=== PATIENT | male | born 1980 | race Caucasian/White ===

== ENCOUNTER 2017-08-30 13:18 | Emergency (ER) | payer OTHER, SELFPAY ==
[2017-08-30 13:48] VITALS: BP 137/77
[2017-08-30] MEDS ORDERED: Sodium Chloride 0.9% 1,000 ML IV ONE ×3 (13:49→15:16)
[2017-08-30] MEDS ORDERED: Sodium Chloride 0.9% 10 ML Syringe FLUSH PRN (13:49)
--- NOTE | 2017-08-30 14:42 | EDM.PDOC ---
ED HPI GENERAL MEDICAL PROBLEM - General Chief Complaint: Diabetic Complaint Stated Complaint: SENT BY DR. GUAJARDO Time Seen by Provider: 08/30/17 13:48 Source of Information: Reports: Patient History Limitations: Reports: No Limitations - History of Present Illness INITIAL COMMENTS - FREE TEXT/NARRATIVE: The patient is a 36-year-old male with a history of [id number] diabetes who was sent from clinic for hyperglycemia. The patient is on oral anti -hyperglycemics only. He states that he hasn't been taking them for the past 3 weeks. He has no particular reason for not taking his medications. States she has adequate supply. States he has not been ill. States that he just forgets to take them. He is not trying to harm himself. He states he's been very thirsty and has been urinating a lot. Feels tired and weak. No additional complaint. No fever. No vomiting. No abdominal pain. No cough or difficulty breathing. Blood sugar was noted to be a high clinic so he was sent here for further care. - Related Data Allergies Allergy/AdvReac Type Severity Reaction Status Date / Time cefaclor [From [facility]] Allergy Cannot Verified 08/30/17 13:43 Remember Sulfa (Sulfonamide Allergy Cannot Verified 08/30/17 13:43 Antibiotics) Remember Home Meds: Home Meds Furosemide [Lasix] 80 mg PO DAILY 07/09/16 [History] Albuterol Sulfate [Proair Hfa] 2 puff INH Q6H PRN 08/30/17 [History] Past Medical History HEENT History: Reports: Impaired Vision Other HEENT History: wears glasses Cardiovascular History: Reports: High Cholesterol, Hypertension, PVD Other Cardiovascular History: 3 minor NJ's about 3-4 years ago Respiratory History: Reports: Asthma, COPD Genitourinary History: Reports: UTI, Recurrent Musculoskeletal History: Reports: Back Pain, Chronic, Other (See Below) Other Musculoskeletal History: sciatica Endocrine/Metabolic History: Reports: Diabetes, Type II - Past Surgical History GI Surgical History: Reports: Appendectomy Social & Family History - Tobacco Use Smoking Status *Q: Current Every Day Smoker Years of Tobacco use: 20 Packs/Tins Daily: 1 Used Tobacco, but Quit: No Month Tobacco Last Used: CURRENTLY SMOKES Second Hand Smoke Exposure: No - Caffeine Use Caffeine Use: Reports: Coffee, Soda - Alcohol Use Days Per Week of Alcohol Use: 0 - Recreational Drug Use Recreational Drug Use: No - Living Situation & Occupation Living situation: Reports: Occupation: Employed ED ROS GENERAL - Review of Systems Review Of Systems: See Below Constitutional: Reports: Malaise, Weakness, Fatigue. Denies: Fever HEENT: Reports: No Symptoms Respiratory: Denies: Shortness of Breath Cardiovascular: Denies: Chest Pain Endocrine: Reports: Fatigue, High Glucose GI/Abdominal: Denies: Abdominal Pain, Vomiting Musculoskeletal: Reports: No Symptoms Skin: Reports: No Symptoms Neurological: Reports: No Symptoms Psychiatric: Reports: No Symptoms Hematologic/Lymphatic: Reports: No Symptoms ED EXAM GENERAL NO PERIP PULSE - Physical Exam Exam: See Below Exam Limited By: No Limitations General Appearance: Alert, WD/WN, No Apparent Distress Eye Exam: Bilateral Eye: Normal Inspection Ears: Normal External Exam Nose: Normal Inspection Throat/Mouth: Normal Inspection, Normal Oropharynx, Normal Voice Head: Atraumatic, Normocephalic Neck: Normal Inspection, Supple, Non-Tender, Full Range of Motion Respiratory/Chest: No Respiratory Distress, Lungs Clear, Normal Breath Sounds, Chest Non-Tender Cardiovascular: Normal Peripheral Pulses, Regular Rate, Rhythm, No Murmur GI/Abdominal: Soft, Non-Tender. No: Rebound Back Exam: Normal Inspection Extremities: Normal Inspection Neurological: Alert, Oriented, Normal Cognition, No Motor/Sensory Deficits Psychiatric: Normal Affect, Normal Mood Skin Exam: Warm, Dry Course - Vital Signs Last Recorded V/S: Last Vital Signs Temp 36.0 C 08/30/17 13:44 Pulse 96 08/30/17 13:44 Resp BP 137/77 08/30/17 13:44 Pulse Ox 94 L 08/30/17 13:44 - Orders/Labs/Meds Orders: Active Orders 24 hr Category Date Time Status EKG 12 Lead [EKG Documentation Completion] [RC] STAT Care 08/30/17 13:48 Active Peripheral IV Care [RC] . DIRECTED Care 08/30/17 13:49 Active Peripheral IV Insertion Adult [OM.PC] Routine Oth 08/30/17 13:48 Ordered Labs: Laboratory Tests 08/30/17 08/30/17 08/30/17 Range/Units 13:49 14:00 14:05 WBC 10.16 H (4.23-9.07) K/mm3 RBC 5.30 (4.63-6.08) M/mm3 Hgb 15.8 (13.7-17.5) gm/L Hct 48.4 (40.1-51.0) % MCV 91.3 (79.0-92.2) fl MCH 29.8 (25.7-32.2) pg MCHC 32.6 (32.2-35.5) g/dl RDW Std Deviation 47.6 H (35.1-43.9) fL Plt Count 226 (163-337) K/mm3 MPV 10.3 (9.4-12.3) fl Neut % (Auto) 55.9 (34.0-67.9) % Lymph % (Auto) 31.0 (21.8-53.1) % Angelina % (Auto) 7.7 (5.3-12.2) % Eos % (Auto) 4.6 (0.8-7.0) Baso % (Auto) 0.3 (0.1-1.2) % Neut # (Auto) 5.68 H (1.78-5.38) K/mm3 Lymph # (Auto) 3.15 (1.32-3.57) K/mm3 Angelina # (Auto) 0.78 (0.30-0.82) K/mm3 Eos # (Auto) 0.47 (0.04-0.54) K/mm3 Baso # (Auto) 0.03 (0.01-0.08) K/mm3 VBG pH 7.32 (7.30-7.40) VBG pCO2 50.5 (41-51) mmHg VBG pO2 55.0 (40-80) mmHG VBG HCO3 25.3 (22-26) meq/L VBG O2 Saturation 84.1 VBG Base Excess -1.1 (-4.0-2.0) O2 Delivery Device Room air Sodium (136-145) mEq/L Potassium (3.5-5.1) mEq/L Chloride (98-107) mEq/L Carbon Dioxide (21-32) mEq/L Anion Gap (5-15) BUN (7-18) mg/dL Creatinine (0.7-1.3) mg/dL Est Cr Clr Drug Dosing mL/min Estimated GFR (MDRD) (>60) mL/min BUN/Creatinine Ratio (14-18) Glucose (74-106) mg/dL POC Glucose (70-105) mg/dL Calcium (8.5-10.1) mg/dL Phosphorus (2.6-4.7) mg/dL Magnesium (1.8-2.4) mg/dl Total Bilirubin (0.2-1.0) mg/dL AST (15-37) U/L ALT (16-63) U/L Alkaline Phosphatase (46-116) U/L Total Protein (6.4-8.2) g/dl Albumin (3.4-5.0) g/dl Globulin gm/dL Albumin/Globulin Ratio (1-2) Urine Color Yellow (Yellow) Urine Appearance Clear (Clear) Urine pH 7.0 (5.0-8.0) Ur Specific [place] 1.015 (1.005-1.030) Urine Protein Negative (Negative) Urine Glucose (UA) 2+ H (Negative) Urine Ketones 1+ H (Negative) Urine Occult Blood Negative (Negative) Urine Nitrite Negative (Negative) Urine Bilirubin Negative (Negative) Urine Urobilinogen 0.2 (0.2-1.0) Ur Leukocyte Esterase Negative (Negative) Urine RBC 0-5 (0-5) /hpf Urine WBC 0-5 (0-5) /hpf Ur Epithelial Cells 0-5 (0-5) /hpf Urine Bacteria Occasional (FEW) /hpf Urine Mucus Not seen (FEW) /hpf 08/30/17 08/30/17 Range/Units 14:05 16:48 WBC (4.23-9.07) K/mm3 RBC (4.63-6.08) M/mm3 Hgb (13.7-17.5) gm/L Hct (40.1-51.0) % MCV (79.0-92.2) fl MCH (25.7-32.2) pg MCHC (32.2-35.5) g/dl RDW Std Deviation (35.1-43.9) fL Plt Count (163-337) K/mm3 MPV (9.4-12.3) fl Neut % (Auto) (34.0-67.9) % Lymph % (Auto) (21.8-53.1) % Angelina % (Auto) (5.3-12.2) % Eos % (Auto) (0.8-7.0) Baso % (Auto) (0.1-1.2) % Neut # (Auto) (1.78-5.38) K/mm3 Lymph # (Auto) (1.32-3.57) K/mm3 Angelina # (Auto) (0.30-0.82) K/mm3 Eos # (Auto) (0.04-0.54) K/mm3 Baso # (Auto) (0.01-0.08) K/mm3 VBG pH (7.30-7.40) VBG pCO2 (41-51) mmHg VBG pO2 (40-80) mmHG VBG HCO3 (22-26) meq/L VBG O2 Saturation VBG Base Excess (-4.0-2.0) O2 Delivery Device Sodium 137 (136-145) mEq/L Potassium 4.2 (3.5-5.1) mEq/L Chloride 102 (98-107) mEq/L Carbon Dioxide 25 (21-32) mEq/L Anion Gap 14.2 (5-15) BUN 13 (7-18) mg/dL Creatinine 1.1 (0.7-1.3) mg/dL Est Cr Clr Drug Dosing 108.83 mL/min Estimated GFR (MDRD) > 60 (>60) mL/min BUN/Creatinine Ratio 11.8 L (14-18) Glucose 525 H* (74-106) mg/dL POC Glucose 379 H (70-105) mg/dL Calcium 8.5 (8.5-10.1) mg/dL Phosphorus 3.5 (2.6-4.7) mg/dL Magnesium 2.0 (1.8-2.4) mg/dl Total Bilirubin 0.4 (0.2-1.0) mg/dL AST 21 (15-37) U/L ALT 44 (16-63) U/L Alkaline Phosphatase 159 H (46-116) U/L Total Protein 6.9 (6.4-8.2) g/dl Albumin 3.2 L (3.4-5.0) g/dl Globulin 3.7 gm/dL Albumin/Globulin Ratio 0.9 L (1-2) Urine Color (Yellow) Urine Appearance (Clear) Urine pH (5.0-8.0) Ur Specific [place] (1.005-1.030) Urine Protein (Negative) Urine Glucose (UA) (Negative) Urine Ketones (Negative) Urine Occult Blood (Negative) Urine Nitrite (Negative) Urine Bilirubin (Negative) Urine Urobilinogen (0.2-1.0) Ur Leukocyte Esterase (Negative) Urine RBC (0-5) /hpf Urine WBC (0-5) /hpf Ur Epithelial Cells (0-5) /hpf Urine Bacteria (FEW) /hpf Urine Mucus (FEW) /hpf Meds: Medications Discontinued Medications Generic Name Dose Route Start Last Admin Trade Name Freq PRN Reason Stop Dose Admin Sodium Chloride 1,000 mls @ 1,000 mls/hr 08/30/17 13:49 08/30/17 13:57 Normal Saline IV 08/30/17 14:48 1,000 mls/hr ONETIME ONE Administration Sodium Chloride 1,000 mls @ 1,000 mls/hr 08/30/17 14:38 08/30/17 15:26 Normal Saline IV 08/30/17 15:37 1,000 mls/hr ONETIME ONE Administration Sodium Chloride 1,000 mls @ 1,000 mls/hr 08/30/17 15:16 08/30/17 16:29 Normal Saline IV 08/30/17 16:15 1,000 mls/hr ONETIME ONE Administration Insulin Human Regular 10 unit 08/30/17 16:00 Humulin R SUBCUT BIDAC KAYCE Protocol Insulin Human Regular 10 unit 08/30/17 15:20 08/30/17 15:28 Humulin R SUBCUT 08/30/17 15:21 10 unit ONETIME ONE Administration Protocol Sodium Chloride 10 ml 08/30/17 13:49 08/30/17 13:57 Saline Flush FLUSH 10 ml ASDIRECTED PRN Administration Keep Vein Open - Re-Assessments/Exams Free Text/Narrative Re-Assessment/Exam: Labs show hyperglycemia with blood sugar in the 500s, normal anion gap, normal bicarbonate. Patient was given 10 units of insulin and 3 L of fluid. His blood sugars improved. His vital signs are normal and he appears well. Encouraged him to resume his home medications. Departure - Departure Time of Disposition: 17:00 Disposition: Home, Self-Care 01 Clinical Impression: Hyperglycemia - Discharge Information Instructions: Hyperglycemia, [id number] Referrals: Vargas Guajardo [Primary Care Provider] - Forms: ED Department Discharge Additional Instructions: 1. Take your usual medications as prescribed 2. Follow up with Dr. Dominguez as soon as possible for further care 3. Drink plenty of fluids 4. Return to the ED if you have chest pain, difficulty breathing, abdominal pain, vomiting, or any other concerning symptoms - My Orders Last 24 Hours: My Active Orders 08/30/17 13:48 EKG 12 Lead [EKG Documentation Completion] [RC] STAT Peripheral IV Insertion Adult [OM.PC] Routine 08/30/17 13:49 Peripheral IV Care [RC] . DIRECTED - Assessment/Plan Last 24 Hours: My Active Orders 08/30/17 13:48 EKG 12 Lead [EKG Documentation Completion] [RC] STAT Peripheral IV Insertion Adult [OM.PC] Routine 08/30/17 13:49 Peripheral IV Care [RC] . DIRECTED
[2017-08-30] MEDS ORDERED: Insulin Regular, Human 100 Units/ML 3 ML Vial SUBCUT ONE (15:20)
[2017-08-30] MEDS ORDERED: Insulin Regular, Human 100 Units/ML 3 ML Vial SUBCUT SCH (16:00)
== END 2017-08-30 18:00 | disposition home or self-care (01) ==
LOC: JD.ED 13:18
DX: E11.65 Type 2 diabetes mellitus with hyperglycemia (principal); I10 Essential (primary) hypertension; E78.00 Pure hypercholesterolemia, unspecified; F17.210 Nicotine dependence, cigarettes, uncomplicated; J44.9 Chronic obstructive pulmonary disease, unspecified; Z88.2 Allergy status to sulfonamides; Z88.1 Allergy status to other antibiotic agents; Z79.84 Long term (current) use of oral hypoglycemic drugs
CPT/HCPCS: 36415; 80053; 81001; 82803; 82962; 83735; 84100; 85025; 93005; 96360; 96361; 96372; 99285; J1817; J7040; J7050; 93010; 99283-25

== ENCOUNTER 2021-03-13 07:40 | Emergency (ER) | payer OTHER ==
--- NOTE | 2021-03-13 08:35 | EDM.PDOC ---
ED HPI GENERAL MEDICAL PROBLEM - General Chief Complaint: ENT Problem Stated Complaint: SORE THROAT/COUGHING UP BLOOD Time Seen by Provider: 03/13/21 08:27 - History of Present Illness INITIAL COMMENTS - FREE TEXT/NARRATIVE: 40-year-old male presents the emergency room with a sore throat and cough. Patient states this started about Sunday roughly 4-5 days ago. He is not aware of any fevers or chills. But the sore throat seems to be getting worse now he is coughing more. He is coughing up some clearish to yellow sputum. The patient has not been tested for Covid recently and he has not been vaccinated yet. Patient denies any other complaints at this time other than at times when he coughs he notices some bloody streaks in his sputum. He is a type II diabetic with hypertension hyperlipidemia. He has a history of having 3 mild heart attack several years ago. Throat Pain Score (Numeric/FACES): 5 - Related Data Allergies Allergy/AdvReac Type Severity Reaction Status Date / Time cefaclor [From Ceclor] Allergy Cannot Verified 03/13/21 07:56 Remember Sulfa (Sulfonamide Allergy Cannot Verified 03/13/21 07:56 Antibiotics) Remember Home Meds: Home Meds Albuterol Sulfate [Proair Hfa] 2 puff INH Q6H PRN 08/30/17 [History] Erythromycin Base [Erythromycin] 333 mg PO TID #30 tablet. 03/13/21 [Rx] Fluticasone Propion/Salmeterol [Fluticasone-Salmeterol 250-50] 1 puff INH BID 03/13/21 [History] Past Medical History HEENT History: Reports: Impaired Vision Other HEENT History: wears glasses Cardiovascular History: Reports: High Cholesterol, Hypertension, PVD Other Cardiovascular History: 3 minor [place]'s about 3-4 years ago Respiratory History: Reports: Asthma, COPD Genitourinary History: Reports: UTI, Recurrent Musculoskeletal History: Reports: Back Pain, Chronic, Other (See Below) Other Musculoskeletal History: sciatica Endocrine/Metabolic History: Reports: Diabetes, Type II - Infectious Disease History Infectious Disease History: Reports: Chicken Pox - Past Surgical History HEENT Surgical History: Reports: Tonsillectomy Cardiovascular Surgical History: Reports: None GI Surgical History: Reports: Appendectomy Endocrine Surgical History: Reports: None Social & Family History - Tobacco Use Tobacco Use Status *Q: Current Every Day Tobacco User Years of Tobacco use: 20 Packs/Tins Daily: 1 - Caffeine Use Caffeine Use: Reports: Coffee, Energy Drinks, Soda - Recreational Drug Use Recreational Drug Use: No - Living Situation & Occupation Living situation: Reports: Occupation: Employed ED ROS GENERAL - Review of Systems Review Of Systems: See Below Constitutional: Denies: Fever, Chills HEENT: Reports: Throat Pain Respiratory: Reports: Cough, Sputum. Denies: Shortness of Breath Cardiovascular: Reports: No Symptoms Endocrine: Reports: No Symptoms GI/Abdominal: Reports: No Symptoms Neurological: Reports: No Symptoms ED EXAM, GENERAL - Physical Exam Exam: See Below Exam Limited By: No Limitations General Appearance: Alert, No Apparent Distress, Obese Eye Exam: Bilateral Eye: Normal Inspection Ears: Normal External Exam, Normal Canal, Hearing Grossly Normal, Normal TMs Nose: Normal Inspection, Normal Mucosa, No Blood Throat/Mouth: Other (Pharynx moderately erythematous with some postnasal drip noted) Head: Atraumatic, Normocephalic Neck: Normal Inspection, Supple, Non-Tender, Full Range of Motion. No: Lymphadenopathy (L), Lymphadenopathy (R) Respiratory/Chest: No Respiratory Distress, Lungs Clear, Normal Breath Sounds Cardiovascular: Regular Rate, Rhythm, No Edema, No Murmur Course - Vital Signs Last Recorded V/S: Last Vital Signs Temp 36.2 C 03/13/21 07:50 Pulse 100 03/13/21 07:50 Resp 18 03/13/21 07:50 BP 156/80 H 03/13/21 07:50 Pulse Ox 93 L 03/13/21 07:50 - Orders/Labs/Meds Labs: Laboratory Tests 03/13/21 03/13/21 Range/Units 08:40 08:40 SARS-CoV-2 RNA (IONA) Negative (NEGATIVE) Group A Strep (PCR) Not detected (NOT DETECT) - Re-Assessments/Exams Free Text/Narrative Re-Assessment/Exam: 03/13/21 10:31 Chest x-ray is negative for any acute changes. Covid screen is negative rapid strep is negative. He could very well still have a wet bronchitis we will start him on erythromycin. Departure - Departure Time of Disposition: 10:32 Disposition: Home, Self-Care 01 Clinical Impression: Bronchitis - Discharge Information Prescriptions: Erythromycin Base [Erythromycin] 333 mg PO TID #30 tablet. Instructions: Acute Bronchitis, Adult, [id number] Referrals: Shreyas Beard ASSISTANT CUST[employer]ER SERVICE MANAGER [Primary Care Provider] - Forms: ED Department Discharge, ED Return to Work/School Form Additional Instructions: Return to the emergency room with any questions problems or worsening symptoms. You were tested for Covid and strep both of these were negative. Your chest x- ray does not show a pneumonia. You have been started on erythromycin take 1 3 times a day for 10 days. This was sent electronically to [facility]. Follow-up with your regular healthcare provider later this next week if needed. Sepsis Event Note (ED) - Evaluation Sepsis Screening Result: No Definite Risk - Focused Exam Vital Signs: Vital Signs Temp Pulse Resp BP Pulse Ox 03/13/21 07:50 36.2 C 100 18 156/80 H 93 L
--- NOTE | 2021-03-13 09:50 | CR ---
Chest: 2 views of the chest were obtained. Comparison: Prior chest x-ray of 07/10/[address] study of 07/10/16. Heart size and mediastinum are within normal limits. Lungs are clear with no acute parenchymal change. Slight degenerative change is scattered within the spine. Impression: 1. Nothing acute is appreciated on 2 view chest x-ray. Diagnostic code #1
[2021-03-13 11:20] VITALS: BP 153/89; PULSE 92
== END 2021-03-13 10:45 | disposition home or self-care (01) ==
LOC: SUPCPDRO 07:40 → JD.ED 07:40
DX: J40 Bronchitis, not specified as acute or chronic (principal); I10 Essential (primary) hypertension; E11.9 Type 2 diabetes mellitus without complications; Z72.0 Tobacco use; Z20.822 Contact with and (suspected) exposure to COVID-19; Z79.899 Other long term (current) drug therapy; Z88.1 Allergy status to other antibiotic agents; Z88.2 Allergy status to sulfonamides
CPT/HCPCS: 71046; 71046-26; 87651-QW; 99283; 99283-25; U0002

== ENCOUNTER 2022-08-05 08:56 | Emergency (ER) | payer OTHER ==
[2022-08-05 09:21] VITALS: BP 132/78; PULSE 98
[2022-08-05] MEDS ORDERED: Sodium Chloride 0.9% 10 ML Syringe FLUSH PRN (09:34)
[2022-08-05] MEDS ORDERED: Clindamycin Phosphate in D5W 900 MG in Premix Bag 1 BAG IV ONE ×2 (09:35)
[2022-08-05 10:19] LABS: HEMOGLOBIN A1C 12.1 %
[2022-08-05] MEDS ORDERED: Insulin Regular, Human 100 Units/ML 3 ML Vial SUBCUT ONE (11:25)
== END 2022-08-05 12:46 | disposition home or self-care (01) ==
LOC: JD.ED 08:56
DX: E11.621 Type 2 diabetes mellitus with foot ulcer (principal); I83.023 Varicose veins of left lower extremity with ulcer of ankle; R60.0 Localized edema; E78.00 Pure hypercholesterolemia, unspecified; I10 Essential (primary) hypertension; J44.9 Chronic obstructive pulmonary disease, unspecified; F17.210 Nicotine dependence, cigarettes, uncomplicated; Z88.2 Allergy status to sulfonamides; Z88.1 Allergy status to other antibiotic agents
CPT/HCPCS: 36415; 80053; 83036; 85025; 86140; 93971; 96365; 99284; J1815; J3490

== ENCOUNTER 2023-01-12 13:49 | Emergency (ER) | payer BC ==
[2023-01-12 14:16] VITALS: BP 115/75; PULSE 101
== END 2023-01-12 17:30 | disposition home or self-care (01) ==
LOC: JD.ED 13:49
DX: R10.84 Generalized abdominal pain (principal); J44.9 Chronic obstructive pulmonary disease, unspecified; I10 Essential (primary) hypertension; E11.9 Type 2 diabetes mellitus without complications; I25.2 Old myocardial infarction; Z88.2 Allergy status to sulfonamides; Z88.1 Allergy status to other antibiotic agents
CPT/HCPCS: 36415; 74176; 74176-26; 80053; 81003; 85025; 86140; 99283; 99284

== ENCOUNTER 2023-11-08 13:22 | Emergency (ER) | payer BC ==
[2023-11-08] MEDS ORDERED: Sodium Chloride 0.9% 10 ML Syringe FLUSH PRN (13:41)
[2023-11-08 14:03] LABS: BASOPHILS PERCENT AUTO 0.3 % (0.0-1.0); EOSINOPHILS ABSOLUTE AUTO 0.4 K/mm3 (0.0-0.4); EOSINOPHILS PERCENT AUTO 4.1 % (0.0-6.0); HEMATOCRIT 46.8 % (42.0-52.0); HEMOGLOBIN 15.7 gm/dl (14.0-18.0); IMMATURE GRAN ABSOLUTE AUTO 0.06 K/mm3 (0.00-0.05); IMMATURE GRAN PERCENT AUTO 0.6 % (0.0-0.4); LYMPHOCYTES ABSOLUTE AUTO 2.7 K/mm3 (1.0-4.8); LYMPHOCYTES PERCENT AUTO 28.3 % (24.0-44.0); MEAN CORPUSCULAR HEMOGLOBIN 30.7 pg (28.0-32.0); MEAN CORPUSCULAR HGB CONC 33.5 g/dl (32.0-36.0); MEAN CORPUSCULAR VOLUME 91.4 fl (83.0-99.0); MEAN PLATELET VOLUME 9.2 fl (9.4-12.4); MONOCYTES ABSOLUTE AUTO 0.6 K/mm3 (0.0-0.8); MONOCYTES PERCENT AUTO 6.6 % (0.0-8.0); NEUTROPHILS ABSOLUTE AUTO 5.7 K/mm3 (1.8-7.7); NEUTROPHILS PERCENT AUTO 60.1 % (41.0-71.0); PLATELET COUNT,PLT 224 K/mm3 (150-400); RED BLOOD CELL COUNT 5.12 M/mm3 (4.52-5.90); WHITE BLOOD CELL COUNT,WBC 9.45 K/mm3 (3.9-11.3)
[2023-11-08 14:29] LABS: INR 0.99; PROTHROMBIN TIME 10.6 SECONDS (9.7-12.0)
[2023-11-08 14:34] LABS: ALBUMIN 3.6 g/dl (3.4-5.0); ANION GAP 16.9 (5-15); BILIRUBIN TOTAL 0.6 mg/dL (0.2-1.0); CALCIUM 8.9 mg/dL (8.5-10.1); CREATININE 0.6 mg/dL (0.7-1.3); EST CRCL DRUG DOSING (CG) 185.82 mL/min; MAGNESIUM 1.7 mg/dL (1.8-2.4); POTASSIUM,K 3.9 mEq/L (3.5-5.1); PROTEIN TOTAL,TP 7.3 g/dl (6.4-8.2)
[2023-11-08] MEDS: Aspirin 81 MG Tab.Chew PO ONE (14:37)
[2023-11-08 15:25] VITALS: BP 142/81; PULSE 89
== END 2023-11-08 15:34 | disposition home or self-care (01) ==
LOC: JD.ED 13:22
DX: R07.9 Chest pain, unspecified (principal); I10 Essential (primary) hypertension; J44.9 Chronic obstructive pulmonary disease, unspecified; E11.9 Type 2 diabetes mellitus without complications; I25.2 Old myocardial infarction; Z79.899 Other long term (current) drug therapy; Z88.1 Allergy status to other antibiotic agents; Z88.2 Allergy status to sulfonamides
CPT/HCPCS: 36415; 71046; 71046-26; 80053; 83735; 83880; 84484; 85025; 85610; 93005; 99285; A9270-GY